=== PATIENT | female | born 1975 | race Caucasian/White ===

== ENCOUNTER 2017-05-04 06:54 | Day surgery (SDC) | payer OTHER ==
[2017-05-04] MEDS: NS 500 ML IV (07:10)
[2017-05-04] MEDS ORDERED: LIDOCAINE 2% INJ 100 MG/5 ML SDV (FOR ANES.) As Ordered (07:16)
[2017-05-04] MEDS ORDERED: PROPOFOL 200 MG/20 ML VIAL As Ordered (07:17)
[2017-05-04] MEDS ORDERED: METOCLOPRAMIDE INJ 10MG/2ML VIAL (J2765) As Ordered (07:33)
== END 2017-05-04 08:40 | disposition home or self-care (01) ==
LOC: M OPP 06:54
DX: R12 Heartburn (principal); K22.8 Other specified diseases of esophagus; K44.9 Diaphragmatic hernia without obstruction or gangrene; R00.2 Palpitations; E78.5 Hyperlipidemia, unspecified; K21.9 Gastro-esophageal reflux disease without esophagitis; F41.9 Anxiety disorder, unspecified; F17.210 Nicotine dependence, cigarettes, uncomplicated; Z88.8 Allergy status to other drugs, medicaments and biological substances; Z88.5 Allergy status to narcotic agent; Z91.048 Other nonmedicinal substance allergy status; Z79.899 Other long term (current) drug therapy; Z80.41 Family history of malignant neoplasm of ovary
CPT/HCPCS: 43239

== ENCOUNTER → 2017-07-01 | Outpatient (CLI) | payer OTHER ==
[~2017-07-01] MED LIST: ISOVUE-370 76% 100ML VIAL (Q9967) As Ordered
== END ==
LOC: M RAD 07:53
DX: R13.10 Dysphagia, unspecified (principal); F17.210 Nicotine dependence, cigarettes, uncomplicated; R93.8 Abnormal findings on diagnostic imaging of other specified body structures
CPT/HCPCS: Q9967

== ENCOUNTER 2017-07-10 18:44 | Emergency (ER) | payer OTHER ==
[2017-07-10] MEDS: ASPIRIN 81 MG CHEW TABLET PO (20:05)
[2017-07-10] MEDS: methylPREDNISolone INJ 125 MG/2 ML VIAL (J2930) IV (20:06)
[2017-07-10 20:07] LABS: BASO % 0.5 % (0.0-1.0); EOS # 0.2 10^3/uL (0.0-0.50); HEMATOCRIT 37.7 % (36.0-47.0); HEMOGLOBIN 12.7 g/dl (12.0-15.5); IMMATURE GRANULOCYTE % 0.3 % (0-3.0); LYMPH # 2.5 10^3/uL (1.5-4.5); LYMPH % 39.2 % (24.0-44.0); MEAN CORPUSCULAR HEMOGLOBIN 29.5 pg (27.0-33.0); MEAN CORPUSCULAR HGB CONC 33.7 g/dl (32.0-36.5); MEAN CORPUSCULAR VOLUME 87.5 fl (80.0-96.0); MONO # 0.4 10^3/uL (0.0-0.8); MONO % 6.1 % (0.0-5.0); NEUTROPHILS # 3.2 10^3/uL (1.8-7.7); NEUTROPHILS % 50.9 % (36.0-66.0); PLATELET COUNT, AUTOMATED 162 10^3/uL (150-450); RED BLOOD COUNT 4.31 10^6/uL (4.00-5.40); RED CELL DISTRIBUTION WIDTH 14.5 % (11.5-14.5); WHITE BLOOD COUNT 6.4 10^3/uL (4.0-10.0)
[2017-07-10] MEDS: IPRATROPIUM 0.5MG/ALBUTEROL 2.5MG INH SOL UD 3ML (DUONEB)(J7620) NEB (20:27)
[2017-07-10 20:40] LABS: LACTIC ACID SEPSIS PROTOCOL 1.3 MMOL/L (0.4-2.0)
[2017-07-10 20:40] LABS: ALBUMIN 3.5 GM/DL (3.2-5.2); ALBUMIN/GLOBULIN RATIO 1.09 (1.00-1.93); ALKALINE PHOSPHATASE 77 U/L (45-117); ALT/SGPT 31 U/L (12-78); ANION GAP 7 MEQ/L (8-16); AST/SGOT 18 U/L (7-37); BILIRUBIN,DIRECT < 0.1 MG/DL (0.0-0.2); BILIRUBIN,TOTAL 0.2 MG/DL (0.2-1.0); BLOOD UREA NITROGEN 13 MG/DL (7-18); CALCIUM LEVEL 8.4 MG/DL (8.5-10.1); CARBON DIOXIDE LEVEL 26 MEQ/L (21-32); CHLORIDE LEVEL 111 MEQ/L (98-107); CPK CREATINE PHOSPHOKINASE 101 U/L (26-192); CREATININE FOR GFR 0.76 MG/DL (0.55-1.30); GLOMERULAR FILTRATION RATE > 60.0 (>58); GLUCOSE, FASTING 96 MG/DL (70-100); POTASSIUM SERUM 3.7 MEQ/L (3.5-5.1); SODIUM LEVEL 144 MEQ/L (136-145); TOTAL PROTEIN 6.7 GM/DL (6.4-8.2); TROPONIN I < 0.02 NG/ML (< 0.10)
[2017-07-10 20:41] LABS: CK-MB VALUE MASS 1.1 NG/ML (<3.6); MB/CK RELATIVE INDEX 1.08 (< OR =4); NT-PRO BNP 101 PG/ML (<125)
[2017-07-10] MEDS ORDERED: ISOVUE-370 76% 100ML VIAL (Q9967) As Ordered (23:39)
[2017-07-11 00:23] LABS: CK-MB VALUE MASS < 1.0 NG/ML (<3.6); CPK CREATINE PHOSPHOKINASE 93 U/L (26-192); MB/CK RELATIVE INDEX 1.07 (< OR =4); TROPONIN I < 0.02 NG/ML (< 0.10)
== END 2017-07-11 01:16 | disposition home or self-care (01) ==
LOC: M ED 07-11 01:16
DX: R06.02 Shortness of breath (principal); K21.9 Gastro-esophageal reflux disease without esophagitis; F17.200 Nicotine dependence, unspecified, uncomplicated; Z82.49 Family history of ischemic heart disease and other diseases of the circulatory system; Z88.5 Allergy status to narcotic agent; Z88.6 Allergy status to analgesic agent; Z88.8 Allergy status to other drugs, medicaments and biological substances; Z91.048 Other nonmedicinal substance allergy status; Z79.899 Other long term (current) drug therapy
CPT/HCPCS: Q9967

== ENCOUNTER 2018-06-05 16:51 | Emergency (ER) | payer OTHER ==
[~2018-06-05] VITALS: Ht 167.6 cm; Wt 93.2 kg
[~2018-06-05 16:51] MED LIST changes: +ACET500C PO; +FISH5CAP PO; -ISOVUE-370 76% 100ML VIAL (Q9967) As Ordered; +MULT1TAB16 PO; +NAPR-855 PO; +NEXI20CA PO; +PANT40TA3 PO
[2018-06-05] MEDS ORDERED: NAPR220C14 PO (16:59)
[2018-06-05] MEDS ORDERED: NS 1,000 ML IV ONE (19:15)
[2018-06-05 19:32] LABS: BASO # 0.1 10^3/uL (0.0-0.2); BASO % 0.5 % (0.0-1.0); EOS # 0.2 10^3/uL (0.0-0.50); EOS % 2.2 % (0.0-3.0); HEMATOCRIT 43.1 % (36.0-47.0); HEMOGLOBIN 14.2 g/dl (12.0-15.5); LYMPH # 2.6 10^3/uL (1.5-4.5); LYMPH % 27.7 % (24.0-44.0); MEAN CORPUSCULAR HEMOGLOBIN 28.9 pg (27.0-33.0); MEAN CORPUSCULAR HGB CONC 32.9 g/dl (32.0-36.5); MEAN CORPUSCULAR VOLUME 87.6 fl (80.0-96.0); MONO # 0.4 10^3/uL (0.0-0.8); MONO % 4.4 % (0.0-5.0); NEUTROPHILS % 64.8 % (36.0-66.0); PLATELET COUNT, AUTOMATED 184 10^3/uL (150-450); RED BLOOD COUNT 4.92 10^6/uL (4.00-5.40); WHITE BLOOD COUNT 9.3 10^3/uL (4.0-10.0)
[2018-06-05] MEDS ORDERED: ISOVUE-370 76% 100ML VIAL (Q9967) As Ordered ONE (20:10)
[2018-06-05 20:11] LABS: BLOOD UREA NITROGEN 11 MG/DL (7-18); CALCIUM LEVEL 9.3 MG/DL (8.5-10.1); CARBON DIOXIDE LEVEL 29 MEQ/L (21-32); CHLORIDE LEVEL 106 MEQ/L (98-107); CREATININE FOR GFR 0.78 MG/DL (0.55-1.30); GLOMERULAR FILTRATION RATE > 60.0 (>58); GLUCOSE, FASTING 98 MG/DL (70-100); MAGNESIUM LEVEL 2.1 MG/DL (1.8-2.4); POTASSIUM SERUM 4.6 MEQ/L (3.5-5.1); SODIUM LEVEL 139 MEQ/L (136-145); THYROID STIMULATING HORMONE 0.876 uIU/ML (0.358-3.740)
--- NOTE | 2018-06-05 21:19 | REPVR ---
EXAM: CT Angiography Chest With Contrast EXAM DATE/TIME: 06/05/2018 8:13 PM CLINICAL HISTORY: 43 years old, female; Pain; Chest pain; Additional info: Chest pain, throbbing sensation R/O aneurysm TECHNIQUE: Imaging protocol: Axial computed tomographic angiography images of the chest with intravenous contrast using CT angiography protocol. Coronal and sagittal reformatted images were created and reviewed. 3D rendering: MIP reconstructed images were created and reviewed. Radiation optimization: All CT scans at this facility use at least one of these dose optimization techniques: automated exposure control; mA and/or kV adjustment per patient size (includes targeted exams where dose is matched to clinical indication); or iterative reconstruction. Contrast material: ISOVUE 370 Contrast volume: 75 ml Contrast route: IV COMPARISON: CT ANGIO CHEST 07/10/2017 11:47 PM FINDINGS: Pulmonary arteries: The main pulmonary artery measures 28 mm. No pulmonary embolism is identified. Aorta: The ascending thoracic aorta measures 31 mm. Lungs: Minimal dependent atelectasis. Pleural space: Normal. No pneumothorax. No pleural effusion. Heart: Normal. No cardiomegaly. No pericardial effusion. Lymph nodes: Unremarkable. No enlarged lymph nodes. Bones/joints: Unremarkable. No acute fracture. Soft tissues: Unremarkable. IMPRESSION: 1. Minimal dependent atelectasis which is decreased since 07/10/2017. 2. Otherwise negative CTA chest which is otherwise unchanged from prior study. No pulmonary embolism is identified. No thoracic aneurysm. Electronically signed by: Pepe Pino On 06/05/2018 21:18:50 PM
[2018-06-05 21:46] VITALS: BP 125/77
--- NOTE | 2018-06-06 21:22 | ECGEPIP ---
Stationary ECG Study [facility] - ED Test Date: 2018-06-05 Pat Name: TANA NGUYEN Department: Room: - Gender: F [employer]ation [employer]ist: : [id number] Requested By: Josiah Quinonez Order Number: [id number] Reading MD: Etta Alford Measurements Intervals [place] Rate: 78 P: 28 CT: 156 QRS: 32 QRSD: 87 T: 30 QT: 360 QTc: 411 Interpretive Statements SINUS RHYTHM NSTTW ABNORMALITY INCREASED RATE 07/10/17 Electronically Signed On 06-06-2018 21:21:54 EDT by Etta Alford
== END 2018-06-05 21:57 | disposition home or self-care (01) ==
LOC: M ED 16:51
DX: R00.2 Palpitations (principal); K21.9 Gastro-esophageal reflux disease without esophagitis; Z79.899 Other long term (current) drug therapy; Z88.5 Allergy status to narcotic agent; Z88.8 Allergy status to other drugs, medicaments and biological substances; Z91.048 Other nonmedicinal substance allergy status; F17.210 Nicotine dependence, cigarettes, uncomplicated
CPT/HCPCS: 36415; 71275; 80048; 83735; 84443; 85025; 93005; 99284; Q9967

== ENCOUNTER → 2018-07-10 | Outpatient (REF) | payer OTHER ==
[~2018-07-10] MED LIST changes: +NAPR220C14 PO
[2018-07-10 18:17] LABS: APPEARANCE, URINE CLEAR (CLEAR); BACTERIA, URINE AUTO NEGATIVE (NEGATIVE); BILIRUBIN, URINE AUTO NEGATIVE (NEGATIVE); BLOOD, URINE BLOOD NEGATIVE (NEGATIVE); COLOR, URINE YELLOW (YELLOW); GLUCOSE, URINE (UA) AUTO NEGATIVE (NEGATIVE); KETONE, URINE AUTO NEGATIVE (NEGATIVE); LEUKOCYTE ESTERASE, URINE AUTO NEGATIVE (NEGATIVE); MUCUS, URINE SMALL (NEGATIVE); NITRITE, URINE AUTO NEGATIVE (NEGATIVE); PROTEIN, URINE AUTO NEGATIVE (NEGATIVE); RBC, URINE AUTO 0 /HPF (0-3); SPECIFIC GRAVITY URINE AUTO 1.009 (1.002-1.035); SQUAMOUS EPITHELIAL CELL UR AU 1 /HPF (0-6); UROBILINOGEN, URINE AUTO 0.2 mg/dL (0.0-2.0); WBC, URINE AUTO 0 /HPF (0-3)
== END ==
LOC: M LAB REF 16:34
PROVIDERS: ATTEND Obstetrics & Gynecology
DX: N39.46 Mixed incontinence (principal); N36.41 Hypermobility of urethra; N39.42 Incontinence without sensory awareness

== ENCOUNTER 2018-11-16 07:01 | Day surgery (SDC) | payer OTHER ==
[~2018-11-16] VITALS: Ht 167.6 cm; Wt 94.8 kg
[~2018-11-16 07:01] MED LIST changes: +ACET-683 PO; +LR 1,000 ML IV ONE; +ceFAZolin SOD 2 GM in IV 1 EA IV ONE
[2018-11-16] MEDS ORDERED: dexameTHASONE 4 MG/ML 1ML VIAL (J1100) As Ordered ONE (07:33)
[2018-11-16] MEDS ORDERED: fentaNYL 100 MCG/2 ML INJECTION (J3010) As Ordered ONE ×2 (07:33→09:42)
[2018-11-16] MEDS ORDERED: ONDANSETRON 4MG/2ML VIAL (J2405) As Ordered ONE ×2 (07:33→10:14)
[2018-11-16] MEDS ORDERED: MIDAZOLAM INJ 2 MG/2 ML VIAL (J2250) As Ordered ONE (07:33)
[2018-11-16] MEDS ORDERED: propofoL 200 MG/20 ML VIAL As Ordered ONE (07:34)
[2018-11-16] MEDS ORDERED: LIDOCAINE 2% INJ 100 MG/5 ML SDV (FOR ANES.) As Ordered ONE (07:34)
[2018-11-16] MEDS ORDERED: VASOPRESSIN INJ 20 UNITS/ML VIAL As Ordered ONE (08:17)
[2018-11-16] MEDS ORDERED: ACETAMINOPHEN 1000MG 100ML IV BTL (OFIRMEV) (J0131 PER 10MG) As Ordered ONE (08:49)
[2018-11-16] MEDS ORDERED: METOCLOPRAMIDE INJ 10MG/2ML VIAL (J2765) As Ordered ONE (09:00)
[2018-11-16] MEDS ORDERED: oxyCODONE 5MG TAB As Ordered ONE ×2 (09:42→10:14)
[2018-11-16] MEDS: oxyCODONE 5MG TAB PO PRN ×2 (09:45→10:17)
[2018-11-16] MEDS ORDERED: LR 1,000 ML IV SCH ×2 (09:45→10:46)
[2018-11-16] MEDS ORDERED: ONDANSETRON 4MG/2ML VIAL (J2405) IV PRN (09:45)
[2018-11-16] MEDS: fentaNYL 100 MCG/2 ML INJECTION (J3010) IV PRN ×3 (09:45→10:00)
[2018-11-16] MEDS ORDERED: PROMETHAZINE INJ 25 MG/ML VIAL (J2550) IV PRN (09:45)
[2018-11-16] MEDS ORDERED: METOCLOPRAMIDE INJ 10MG/2ML VIAL (J2765) IV PRN (09:45)
[2018-11-16 11:30] VITALS: BP 120/73
--- NOTE | 2018-11-16 14:51 | RO ---
DATE OF PROCEDURE: 11/16/2018 PREPROCEDURE DIAGNOSIS: Stress urinary incontinence with urethral hypermobility. POSTPROCEDURE DIAGNOSIS: Stress urinary incontinence with urethral hypermobility. PROCEDURE: Mini Mid-Urethral sling with Solyx and cystourethroscopy. SURGEON: Dr. Linda Pineda DIE SINKER: None. ANESTHESIA: Laryngeal mask airway (LMA) anesthesia. DESCRIPTION OF PROCEDURE: Joya was brought to the operating room where sufficient anesthesia was induced. She was prepped, draped and positioned in the usual sterile fashion. Preoperative antibiotics given and then the bladder was emptied and diluted vasopressin was injected approximated 1-1.5 cm cephalad in the urethral meatus as an area that seemed a natural demarcation for the urethra. We then carefully incised in the midline about 1-1.5 cm and then dissected out laterally with the Strully's so we did encounter her previous DVTO sling. This appeared to be in the right location and we were able to dissect the tissue overtop of it to place a new path for our mini midurethral sling. Having carefully dissected out the tracts, placed the Solyx mini Mid-Urethral sling on the right side first, then the left without complication. There was some oozing from the scarring around the sling just in the anterior vaginal wall. This was during the dissection, well before we got out laterally towards any of the larger vessels. So the plan was made for a temporary pack before the patient's discharge and the sling was placed without difficulty. We then scoped the bladder. We did not find any evidence of injury to the bladder nor was there any evidence of persistent injury from her previous procedure. There were normal jets of urine from both ureters and I was very careful to perform circumference evaluation of the bladder and urethra without finding any injury. I emptied the bladder again and sutured shut the vaginal wound and placed the packing and ended the procedure. ESTIMATED BLOOD LOSS: About 50 mL. FLUID REPLACEMENT: Crystalloid. COMPLICATIONS: None. CONDITION AND DISPOSITION: Joya tolerated the procedure well and was recovering in the recovery room in good condition.
== END 2018-11-16 11:45 | disposition home or self-care (01) ==
LOC: M SDC 07:01
PROVIDERS: ATTEND Obstetrics & Gynecology
DX: N39.3 Stress incontinence (female) (male) (principal); N36.41 Hypermobility of urethra; K21.9 Gastro-esophageal reflux disease without esophagitis; E78.49 Other hyperlipidemia; K44.9 Diaphragmatic hernia without obstruction or gangrene; F17.210 Nicotine dependence, cigarettes, uncomplicated; Z88.5 Allergy status to narcotic agent; Z88.8 Allergy status to other drugs, medicaments and biological substances; Z79.899 Other long term (current) drug therapy; F41.9 Anxiety disorder, unspecified
CPT/HCPCS: 57288; C1771; J0131; J0690; J1100; J2250; J2405; J2765; J3010

== ENCOUNTER → 2018-11-29 | Outpatient (REF) | payer OTHER ==
[~2018-11-29] MED LIST changes: -LR 1,000 ML IV ONE; -ceFAZolin SOD 2 GM in IV 1 EA IV ONE
== END ==
LOC: M SFHCPLAZ 09:43
PROVIDERS: ATTEND Dermatology
DX: D22.62 Melanocytic nevi of left upper limb, including shoulder (principal)

== ENCOUNTER → 2019-02-06 | Outpatient (REF) | payer OTHER | LOC: M LAB REF 18:27 | PROVIDERS: ATTEND Dermatology | DX: D36.7 Benign neoplasm of other specified sites (principal) ==

== ENCOUNTER → 2021-05-06 | Outpatient (CLI) | payer OTHER ==
[~2021-05-06] MED LIST changes: +PANT40TA29 PO; -PANT40TA3 PO
== END ==
LOC: M WHC 07:55
PROVIDERS: ATTEND Family Medicine
DX: Z12.31 Encounter for screening mammogram for malignant neoplasm of breast (principal); R92.8 Other abnormal and inconclusive findings on diagnostic imaging of breast
CPT/HCPCS: 76642; 77066; G0279

== ENCOUNTER → 2021-07-17 | Outpatient (CLI) | payer OTHER | LOC: M RAD 07:33 | PROVIDERS: ATTEND Surgery | DX: K21.9 Gastro-esophageal reflux disease without esophagitis (principal); K30 Functional dyspepsia | CPT/HCPCS: 78264; A9541 ==

== ENCOUNTER 2021-11-16 12:49 | Day surgery (SDC) | payer OTHER ==
[~2021-11-16] VITALS: Ht 167.6 cm; Wt 101.2 kg
[~2021-11-16 12:49] MED LIST changes: +DICY10CA13 PO; +NEXI40GR PO; +NS 1,000 ML IV ONE; +SPIR100T3 PO
[2021-11-16] MEDS ORDERED: LIDOCAINE 2% 100MG/5ML SDV (FOR ANES.) As Ordered ONE (13:41)
[2021-11-16] MEDS ORDERED: propofoL 200 MG/20 ML VIAL As Ordered ONE (13:41)
[2021-11-16] MEDS ORDERED: fentaNYL 100 MCG/2 ML INJECTION As Ordered ONE (14:21)
[2021-11-16 15:12] VITALS: BP 130/69
== END 2021-11-16 15:13 | disposition home or self-care (01) ==
LOC: M OPP 12:49
PROVIDERS: ATTEND Internal Medicine Gastroenterology
DX: K22.89 Other specified disease of esophagus (principal); K29.60 Other gastritis without bleeding; K44.9 Diaphragmatic hernia without obstruction or gangrene; F17.200 Nicotine dependence, unspecified, uncomplicated; Z79.1 Long term (current) use of non-steroidal anti-inflammatories (NSAID); Z79.899 Other long term (current) drug therapy; Z88.5 Allergy status to narcotic agent; Z88.6 Allergy status to analgesic agent; Z88.8 Allergy status to other drugs, medicaments and biological substances; Z91.048 Other nonmedicinal substance allergy status
CPT/HCPCS: 43239; 88305; J3010

== ENCOUNTER 2023-06-30 10:11 | Day surgery (SDC) | payer OTHER ==
[~2023-06-30] VITALS: Ht 167.6 cm; Wt 110.3 kg
[~2023-06-30 10:11] MED LIST changes: +ACETAMINOPHEN 1000MG 100ML IV BAG As Ordered ONE; +ASPI-226 PO; +BRIL90TA PO; +BUPR75TA5 PO; +DICY-61 PO; -DICY10CA13 PO; +DULO1CAP4 PO; +FERR325T19 PO; +KETOROLAC 60MG 2ML VIAL As Ordered ONE; +LIDOCAINE 2% 100MG/5ML SDV (FOR ANES.) As Ordered ONE; +METO1TAB32 PO; +MIDAZOLAM INJ 2MG/2ML VIAL As Ordered ONE; -NS 1,000 ML IV ONE; +OMEG-23 PO; +OMEG10002 PO; +OMEG1CAP85 PO; +ONDANSETRON 4MG 2ML VIAL As Ordered ONE; +ROCURONIUM BROMIDE 50MG/5ML VIAL As Ordered ONE; +ROSU10TA61 PO; +ROSU20TA61 PO; +TIZA2TA PO; +VALE500C2 PO; +fentaNYL 100 MCG/2 ML INJECTION As Ordered ONE; +propofoL 200 MG/20 ML VIAL As Ordered ONE
[2023-06-30] MEDS ORDERED: LR 1,000 ML IV SCH (10:15)
[2023-06-30 10:57] LABS: HEMATOCRIT 39.7 % (36.0-47.0); HEMOGLOBIN 12.7 g/dl (12.0-15.5)
[2023-06-30] MEDS ORDERED: SCOPOLAMINE 1MG TRANSDERMAL PATCH As Ordered ONE (11:07)
[2023-06-30] MEDS ORDERED: METOCLOPRAMIDE INJ 10MG/2ML VIAL As Ordered ONE (11:33)
[2023-06-30] MEDS: LIDOCAINE 1% SDV 30ML VIAL As Ordered ONE (12:10)
[2023-06-30] MEDS: SILVER NITRATE APPLICATOR (1 = QTY 10) As Ordered ONE (12:10)
[2023-06-30] MEDS ORDERED: fentaNYL 100 MCG/2 ML INJECTION IV PRN (12:35)
[2023-06-30] MEDS ORDERED: HYDROMORPHONE HCL 0.5 MG/ 0.5 ML SYRINGE IV PRN (12:35)
[2023-06-30] MEDS: oxyCODONE 5MG TAB PO PRN (12:59)
[2023-06-30] MEDS: ONDANSETRON 4MG 2ML VIAL IV PRN (12:59)
[2023-06-30 14:30] VITALS: BP 120/61; TEMP 96.6; O2SAT 95
== END 2023-06-30 14:36 | disposition home or self-care (01) ==
LOC: M SDC 10:11
PROVIDERS: ATTEND Obstetrics & Gynecology
DX: N93.9 Abnormal uterine and vaginal bleeding, unspecified (principal); N84.0 Polyp of corpus uteri; E78.5 Hyperlipidemia, unspecified; K44.9 Diaphragmatic hernia without obstruction or gangrene; K21.9 Gastro-esophageal reflux disease without esophagitis; F41.9 Anxiety disorder, unspecified; Z79.82 Long term (current) use of aspirin; Z79.899 Other long term (current) drug therapy; Z87.891 Personal history of nicotine dependence; Z98.61 Coronary angioplasty status; Z88.5 Allergy status to narcotic agent; Z88.8 Allergy status to other drugs, medicaments and biological substances
CPT/HCPCS: 36415; 58558; 81025; 85014; 85018; 88305; J0131; J1100; J2250; J2405; J2765; J3010

== ENCOUNTER → 2024-03-28 | Outpatient (CLI) | payer OTHER ==
[~2024-03-28] MED LIST changes: -ACETAMINOPHEN 1000MG 100ML IV BAG As Ordered ONE; -KETOROLAC 60MG 2ML VIAL As Ordered ONE; -LIDOCAINE 2% 100MG/5ML SDV (FOR ANES.) As Ordered ONE; -MIDAZOLAM INJ 2MG/2ML VIAL As Ordered ONE; +OMEG-28 PO; -OMEG1CAP85 PO; -ONDANSETRON 4MG 2ML VIAL As Ordered ONE; -ROCURONIUM BROMIDE 50MG/5ML VIAL As Ordered ONE; -ROSU20TA61 PO; +ROSU20TA86 PO; -fentaNYL 100 MCG/2 ML INJECTION As Ordered ONE; -propofoL 200 MG/20 ML VIAL As Ordered ONE
== END ==
LOC: M RAD 10:15
PROVIDERS: ATTEND Student in an Organized Health Care Education/Training Program
DX: Z12.2 Encounter for screening for malignant neoplasm of respiratory organs (principal); F17.211 Nicotine dependence, cigarettes, in remission; I25.10 Atherosclerotic heart disease of native coronary artery without angina pectoris

== ENCOUNTER → 2024-03-30 | Outpatient (CLI) | payer OTHER | LOC: M WHC 09:51 | PROVIDERS: ATTEND Student in an Organized Health Care Education/Training Program | DX: Z12.31 Encounter for screening mammogram for malignant neoplasm of breast (principal); R92.323 Mammographic fibroglandular density, bilateral breasts ==

== ENCOUNTER → 2024-04-19 | Outpatient (CLI) | payer OTHER | LOC: M PLAIMG 14:55 | PROVIDERS: ATTEND Nurse Practitioner Family | DX: M51.360 Other intervertebral disc degeneration, lumbar region with discogenic back pain only (principal) ==

== ENCOUNTER → 2024-05-02 | Outpatient (CLI) | payer OTHER ==
[~2024-05-02] MED LIST changes: +E-Z-GAS II EFFERVESCENT PACKET (SODIUM BICARB./CITRIC ACID/SIMETHICONE) As Ordered ONE; +E-Z-HD 98% w/w 340GM SUSP BTL As Ordered ONE; +E-Z-PAQUE 96% w/w SUSP 176GM BTL As Ordered ONE
== END ==
LOC: M RAD 08:13
PROVIDERS: ATTEND Internal Medicine Gastroenterology
DX: R12 Heartburn (principal)

== ENCOUNTER → 2024-06-17 | Outpatient (CLI) | payer OTHER ==
[~2024-06-17] MED LIST changes: -E-Z-GAS II EFFERVESCENT PACKET (SODIUM BICARB./CITRIC ACID/SIMETHICONE) As Ordered ONE; -E-Z-HD 98% w/w 340GM SUSP BTL As Ordered ONE; -E-Z-PAQUE 96% w/w SUSP 176GM BTL As Ordered ONE
== END ==
LOC: M SLEEP 20:00
PROVIDERS: ATTEND Internal Medicine Pulmonary Disease
DX: G47.33 Obstructive sleep apnea (adult) (pediatric) (principal)

== ENCOUNTER → 2024-07-03 | Outpatient (CLI) | payer OTHER | LOC: M CARPUL 09:29 | PROVIDERS: ATTEND Internal Medicine Pulmonary Disease | DX: R06.02 Shortness of breath (principal) ==

== ENCOUNTER → 2024-07-12 | Outpatient (CLI) | payer OTHER ==
[~2024-07-12] MED LIST changes: +METHACHOLINE KIT (6 VIAL.NEB PREMIX) INH ONE
== END ==
LOC: M CARPUL 09:39
PROVIDERS: ATTEND Internal Medicine Pulmonary Disease
DX: R06.02 Shortness of breath (principal)
CPT/HCPCS: 94070; 95070; J7674

== ENCOUNTER → 2024-09-25 | Outpatient (CLI) | payer OTHER ==
[~2024-09-25] MED LIST changes: +ESOM20CA25 PO; +EZET10TA21 PO; +FERR32TA PO; +FLUTISP; +MELO7.5T35 PO; +METF850T4 PO; -METHACHOLINE KIT (6 VIAL.NEB PREMIX) INH ONE; +PARO5TAB PO; +REPA140I2; +TIRZ5PEN3; +VITA500T9 PO
== END ==
LOC: M PLAIMG 06:36
PROVIDERS: ATTEND Pain Medicine Interventional Pain Medicine
DX: M47.26 Other spondylosis with radiculopathy, lumbar region (principal); M51.26 Other intervertebral disc displacement, lumbar region

== ENCOUNTER 2024-10-01 11:15 | Day surgery (SDC) | payer OTHER ==
[~2024-10-01] VITALS: Ht 167.6 cm; Wt 110.9 kg
[2024-10-01] MEDS ORDERED: LIDOCAINE 1% MDV 20 ML VIAL As Ordered ONE (13:02)
[2024-10-01 13:39] VITALS: TEMP 97
[2024-10-01 13:55] VITALS: BP 113/68; O2SAT 95
== END 2024-10-01 14:02 | disposition home or self-care (01) ==
LOC: M OPP 11:15
PROVIDERS: ATTEND Internal Medicine Gastroenterology
DX: Z12.11 Encounter for screening for malignant neoplasm of colon (principal); K57.30 Diverticulosis of large intestine without perforation or abscess without bleeding; K22.89 Other specified disease of esophagus; R12 Heartburn; G47.30 Sleep apnea, unspecified; Z88.5 Allergy status to narcotic agent; Z88.8 Allergy status to other drugs, medicaments and biological substances; Z91.048 Other nonmedicinal substance allergy status; Z79.82 Long term (current) use of aspirin; Z79.51 Long term (current) use of inhaled steroids; Z79.85 Long-term (current) use of injectable non-insulin antidiabetic drugs; Z79.899 Other long term (current) drug therapy
CPT/HCPCS: 43239; 45378; 88305; J3010

== ENCOUNTER 2024-10-29 07:25 | Day surgery (SDC) | payer OTHER ==
[~2024-10-29] VITALS: Ht 167.6 cm; Wt 110.9 kg
[2024-10-29] MEDS ORDERED: LR 1,000 ML IV SCH ×2 (07:40→10:20)
[2024-10-29] MEDS ORDERED: ACETAMINOPHEN 1000MG/100ML IV BAG As Ordered ONE (08:42)
[2024-10-29] MEDS ORDERED: LIDOCAINE 2% 100 MG/5 ML SDV (FOR ANES.) As Ordered ONE (08:43)
[2024-10-29] MEDS ORDERED: ONDANSETRON 4MG 2ML VIAL As Ordered ONE (08:43)
[2024-10-29] MEDS ORDERED: MIDAZOLAM INJ 2 MG/2 ML VIAL As Ordered ONE (08:43)
[2024-10-29] MEDS ORDERED: dexAMETHasone 4 MG/ML 1 ML VIAL As Ordered ONE (08:43)
[2024-10-29] MEDS: METHYLENE BLUE 0.5% (5 MG/ML) 10 ML AMP As Ordered ONE (10:10)
[2024-10-29] MEDS: EPINEPHrine 1 MG/ML INJ 30 ML MD-VIAL As Ordered ONE (10:10)
[2024-10-29] MEDS ORDERED: HYDROMORPHONE HCL 0.5 MG/0.5 ML SYRINGE IV PRN (10:20)
[2024-10-29] MEDS: ONDANSETRON 4MG 2ML VIAL IV PRN (10:28)
[2024-10-29 10:56] VITALS: BP 158/75; TEMP 96.7; O2SAT 99
== END 2024-10-29 11:34 | disposition home or self-care (01) ==
LOC: M SDC 07:25
PROVIDERS: ATTEND Otolaryngology
DX: H69.82 Other specified disorders of Eustachian tube, left ear (principal); I25.10 Atherosclerotic heart disease of native coronary artery without angina pectoris; E78.00 Pure hypercholesterolemia, unspecified; Z95.5 Presence of coronary angioplasty implant and graft; Z79.899 Other long term (current) drug therapy; Z79.82 Long term (current) use of aspirin; Z88.8 Allergy status to other drugs, medicaments and biological substances; Z88.6 Allergy status to analgesic agent; Z88.5 Allergy status to narcotic agent; Z79.1 Long term (current) use of non-steroidal anti-inflammatories (NSAID); G47.30 Sleep apnea, unspecified
CPT/HCPCS: 69705; C1726; J0131; J0169; J1100; J2250; J2405; J3010; Q9968

== ENCOUNTER 2024-12-25 06:12 | Day surgery (SDC) | payer OTHER ==
[~2024-12-25] VITALS: Ht 167.6 cm; Wt 103.4 kg
[~2024-12-25 06:12] MED LIST changes: +BUPR-363 PO; -BUPR75TA5 PO; -EZET10TA21 PO; +EZET10TA57 PO; -ROSU10TA61 PO; +ROSU10TA90 PO
[2024-12-25 06:55] LABS: PLATELET COUNT, AUTOMATED 179 10^3/uL (150-450)
[2024-12-25] MEDS ORDERED: LIDOCAINE 2% 100 MG/5 ML SDV (FOR ANES.) As Ordered ONE (06:57)
[2024-12-25] MEDS ORDERED: dexAMETHasone 4 MG/ML 1 ML VIAL As Ordered ONE (06:57)
[2024-12-25] MEDS ORDERED: ONDANSETRON 4MG/2ML VIAL As Ordered ONE (06:57)
[2024-12-25] MEDS ORDERED: ROCURONIUM BROMIDE 50MG/5ML VIAL As Ordered ONE (06:57)
[2024-12-25] MEDS ORDERED: KETOROLAC 30 MG/ML 1 ML VIAL As Ordered ONE (06:58)
[2024-12-25] MEDS: LR 1,000 ML IV SCH (06:58)
[2024-12-25] MEDS ORDERED: MIDAZOLAM INJ 2 MG/2 ML VIAL As Ordered ONE (07:02)
[2024-12-25] MEDS ORDERED: dexmedeTOMIDine (4 MCG/ML) 200 MCG/50 ML BTL As Ordered ONE (07:04)
[2024-12-25] MEDS: SCOPOLAMINE 1MG TRANSDERMAL PATCH TOP ONE (07:10)
[2024-12-25] MEDS: SILVER NITRATE APPLICATOR (1 = QTY 10) As Ordered ONE (07:20)
[2024-12-25] MEDS: ceFAZolin SOD 2 GM IV ONCE IV ONE (07:46)
[2024-12-25] MEDS: ENOXAPARIN 40 MG/0.4 ML SYRINGE (J1650 PER 10MG) SC ONE (07:48)
[2024-12-25] MEDS: metroNIDAZOLE 500 MG in IV 1 EA IV ONE (08:08)
[2024-12-25] MEDS ORDERED: ACETAMINOPHEN 1000MG/100ML IV BAG As Ordered ONE (08:12)
[2024-12-25] MEDS: GABAPENTIN 300 MG CAP PO ONE (08:30)
[2024-12-25] MEDS ORDERED: SUGAMMADEX SODIUM 500 MG/5 ML VIAL As Ordered ONE (08:31)
[2024-12-25] MEDS ORDERED: FAMOTIDINE 20 MG/2 ML VIAL As Ordered ONE (08:33)
[2024-12-25] MEDS: FAMOTIDINE 20 MG/2 ML VIAL IVP ONE (08:35)
[2024-12-25] MEDS ORDERED: HYDROmorphone HCL 2 MG/ML 1 ML VIAL As Ordered ONE (09:16)
[2024-12-25] MEDS ORDERED: HYDROMORPHONE HCL 0.5 MG/0.5 ML SYRINGE IV PRN (11:40)
[2024-12-25 13:19] VITALS: BP 130/71; TEMP 97.4; O2SAT 98
== END 2024-12-25 13:23 | disposition home or self-care (01) ==
LOC: M SDC 06:12
PROVIDERS: ATTEND Obstetrics & Gynecology
DX: N84.0 Polyp of corpus uteri (principal); D25.2 Subserosal leiomyoma of uterus; N80.03 Adenomyosis of the uterus; N93.9 Abnormal uterine and vaginal bleeding, unspecified; Z98.51 Tubal ligation status; D64.9 Anemia, unspecified; I25.10 Atherosclerotic heart disease of native coronary artery without angina pectoris; E78.00 Pure hypercholesterolemia, unspecified; G47.30 Sleep apnea, unspecified; K21.9 Gastro-esophageal reflux disease without esophagitis; Z79.899 Other long term (current) drug therapy; Z79.82 Long term (current) use of aspirin; Z79.1 Long term (current) use of non-steroidal anti-inflammatories (NSAID); Z95.5 Presence of coronary angioplasty implant and graft; Z88.8 Allergy status to other drugs, medicaments and biological substances; Z88.5 Allergy status to narcotic agent
CPT/HCPCS: 36415; 58571; 81025; 85027; 86850; 86900; 86901; 88307; J0131; J0665; J0688; J1100; J1171; J1308; J1650; J1836; J2250; J2405; J3010